=== PATIENT | male | born 1970 | race Two or more races ===

== ENCOUNTER 2017-12-09 10:05 | Emergency (ER) | payer MEDICAID ==
[~2017-12-09] VITALS: Ht 167.6 cm; Wt 104.3 kg
[~2017-12-09 10:05] MED LIST: METO25TA5 PO
[2017-12-09 10:25] VITALS: BP 131/71
== END 2017-12-09 12:45 | disposition left against medical advice (07) ==
LOC: ER 10:05
DX: T14.8XXA Other injury of unspecified body region, initial encounter (principal); Z79.899 Other long term (current) drug therapy; Y08.89XA Assault by other specified means, initial encounter; Y93.89 Activity, other specified; Y92.89 Other specified places as the place of occurrence of the external cause; Y99.8 Other external cause status

== ENCOUNTER 2018-11-08 12:32 | Emergency (ER) | payer MEDICAID ==
[~2018-11-08] VITALS: Ht 170.2 cm; Wt 101.6 kg
[2018-11-08 15:22] LABS: Urine Bacteria NONE SEEN /hpf (None Seen); Urine Blood Negative /uL (Negative); Urine Specific Gravity 1.032 (1.001-1.035); Urine WBC 1 /hpf (0 - 3)
[2018-11-08 15:43] LABS: Basophils # (auto) 0 uL; Basophils % (auto) 0.2 % (0.0-2.0); Eosinophils # (auto) 0.2 uL; Eosinophils % (auto) 1.9 % (0.0-7.0); Hematocrit 48.4 % (41.0-53.0); Hemoglobin 15.5 g/dL (13.5-17.5); Lymphocytes # (auto) 2.2 uL; Lymphocytes % (auto) 19.7 % (10.0-50.0); Mean Corpuscular Hemoglobin 28.4 pg (28.0-32.0); Mean Corpuscular Hgb Conc. 32.1 g/dL (32.0-36.0); Mean Corpuscular Volume 88.3 fL (80.0-100.0); Monocytes # (auto) 1.2 uL; Monocytes % (auto) 10.9 % (0.0-12.0); Neutrophils # (auto) 7.5 uL; Neutrophils % (auto) 67.3 % (37.0-80.0); Nucleated Red Blood Cells % 0.1 %; Platelet Count (auto) 204 10^3/uL (140-450); Red Blood Cells 5.48 10^6/uL (4.5-5.90); Red Cell Distribution Width 14.7 % (11.8-14.3); White Blood Cell 11.1 10^3/uL (4.4-10.8)
[2018-11-08 16:00] LABS: Albumin 3.6 g/dL (3.4-5.0); Anion Gap 7 (5-15); Blood Urea Nitrogen 14 mg/dL (7-18); Calcium 9.1 mg/dL (8.5-10.1); Carbon Dioxide 29 mmol/L (21-32); Chloride 106 mmol/L (98-107); Potassium 4.5 mmol/L (3.5-5.1); Sodium 142 mmol/L (136-145)
[2018-11-08 16:07] LABS: Alanine Aminotransferase 80 U/L (16-61); Alkaline Phosphatase 122 U/L (45-117); Aspartate Aminotransferase 54 U/L (15-37); BUN/Creatinine Ratio 17.9; Bilirubin, Total 0.3 mg/dL (0.2-1.0); GFR African American 135 mL/min; GFR Non-African American 112 mL/min; Glucose 89 mg/dL (74-106); Total Protein 7.7 g/dL (6.4-8.2)
[2018-11-08 17:38] VITALS: BP 112/66
== END 2018-11-08 17:39 | disposition home or self-care (01) ==
LOC: ER 12:33
DX: F41.9 Anxiety disorder, unspecified (principal); R79.89 Other specified abnormal findings of blood chemistry; Z79.899 Other long term (current) drug therapy
CPT/HCPCS: 36415; 80053; 81001; 82962; 84484; 85025; 93005

== ENCOUNTER 2020-07-22 07:14 | Emergency (ER) | payer MEDICAID ==
[~2020-07-22] VITALS: Ht 167.6 cm; Wt 103.0 kg
[2020-07-22 07:20] VITALS: BP 144/82
[2020-07-22] MEDS ORDERED: HYDROcodone-ACET 10/325MG TAB PO ONE (07:45)
== END 2020-07-22 09:48 | disposition home or self-care (01) ==
LOC: ER 07:14
DX: M54.6 Pain in thoracic spine (principal); M79.18 Myalgia, other site
CPT/HCPCS: 72070; 93005

== ENCOUNTER 2021-12-12 20:47 | Emergency (ER) | payer MEDICAID ==
[~2021-12-12] VITALS: Ht 167.6 cm; Wt 101.2 kg
[2021-12-12 21:17] LABS: Basophils # (auto) 0.1 10 ^3/uL (0-0.2); Basophils % (auto) 0.8 % (0.0-2.0); Eosinophils # (auto) 0.2 10 ^3/uL (0-0.8); Eosinophils % (auto) 2.4 % (0.0-7.0); Hematocrit 42.2 % (41.0-53.0); Hemoglobin 14.2 g/dL (13.5-17.5); Lymphocytes # (auto) 2.4 10 ^3/uL (0.4-5.4); Lymphocytes % (auto) 23.8 % (10.0-50.0); Mean Corpuscular Hemoglobin 29.4 pg (28.0-32.0); Mean Corpuscular Hgb Conc. 33.6 g/dL (32.0-36.0); Mean Corpuscular Volume 87.7 fL (80.0-100.0); Monocytes # (auto) 0.6 10 ^3/uL (0-1.3); Monocytes % (auto) 6.3 % (0.0-12.0); Neutrophils # (auto) 6.6 10 ^3/uL (1.6-8.6); Neutrophils % (auto) 66.7 % (37.0-80.0); Nucleated Red Blood Cells % 0.1 %; Red Blood Cells 4.81 10^6/uL (4.5-5.90); Red Cell Distribution Width 13.7 % (11.8-14.3); White Blood Cell 9.9 10^3/uL (4.4-10.8)
[2021-12-12 21:40] LABS: Albumin 3.6 g/dL (3.4-5.0); BUN/Creatinine Ratio 17.1; Calcium 9.6 mg/dL (8.5-10.1); Potassium 3.9 mmol/L (3.5-5.1)
[2021-12-12 21:43] LABS: Bilirubin, Total 0.4 mg/dL (0.2-1.0); Total Protein 7.8 g/dL (6.4-8.2)
[2021-12-12 23:40] VITALS: BP 136/86
[2021-12-12] MEDS ORDERED: DOCU100T15 PO (23:41)
[2021-12-13 01:01] LABS: Urine Bacteria NONE SEEN /hpf (None Seen); Urine Blood Negative /uL (Negative); Urine Mucus FEW (None Seen); Urine Specific Gravity 1.021 (1.001-1.035); Urine WBC 2 /hpf (0 - 3)
== END 2021-12-12 23:55 | disposition home or self-care (01) ==
LOC: ER 20:48
DX: K59.09 Other constipation (principal); I10 Essential (primary) hypertension; E11.9 Type 2 diabetes mellitus without complications; G89.29 Other chronic pain; M54.9 Dorsalgia, unspecified; Z79.899 Other long term (current) drug therapy
CPT/HCPCS: 36415; 71045; 74176; 80053; 81001; 83690; 85025

== ENCOUNTER 2022-05-18 16:35 | Emergency (ER) | payer MEDICAID ==
[~2022-05-18] VITALS: Ht 167.6 cm; Wt 92.7 kg
[~2022-05-18 16:35] MED LIST changes: +DOCU100T15 PO
[2022-05-18] MEDS ORDERED: ONDANSETRON HCL 4 MG/2 ML VIAL IV ONE (17:00)
[2022-05-18] MEDS ORDERED: SODIUM CHLORIDE 0.9% 1,000 ML IVB ONE (17:00)
[2022-05-18] MEDS ORDERED: IOHEXOL 300 MG/ML 100ML BOTTLE IJ ONE (17:15)
[2022-05-18 17:42] LABS: Basophils # (auto) 0 10 ^3/uL (0-0.2); Basophils % (auto) 0.2 % (0.0-2.0); Eosinophils # (auto) 0.1 10 ^3/uL (0-0.8); Hemoglobin 10.9 g/dL (13.5-17.5); Lymphocytes # (auto) 2.6 10 ^3/uL (0.4-5.4); Mean Corpuscular Hgb Conc. 31.3 g/dL (32.0-36.0); Mean Corpuscular Volume 81.3 fL (80.0-100.0)
[2022-05-18 17:43] LABS: Eosinophils % (auto) 1.3 % (0.0-7.0); Hematocrit 34.9 % (41.0-53.0); Lymphocytes % (auto) 24.4 % (10.0-50.0); Mean Corpuscular Hemoglobin 25.5 pg (28.0-32.0); Monocytes # (auto) 1.1 10 ^3/uL (0-1.3); Neutrophils # (auto) 6.8 10 ^3/uL (1.6-8.6); Neutrophils % (auto) 64.1 % (37.0-80.0); Red Blood Cells 4.29 10^6/uL (4.5-5.90); Red Cell Distribution Width 14.1 % (11.8-14.3); White Blood Cell 10.7 10^3/uL (4.4-10.8)
[2022-05-18 17:58] LABS: Alanine Aminotransferase 17 U/L (16-61); Albumin 3.6 g/dL (3.4-5.0); Anion Gap 7 (5-15); Aspartate Aminotransferase 13 U/L (15-37); BUN/Creatinine Ratio 28.4; Blood Alcohol < 3.0 mg/dL (0-5); Blood Urea Nitrogen 19 mg/dL (7-18); Calcium 8.5 mg/dL (8.5-10.1); Carbon Dioxide 28 mmol/L (21-32); Chloride 110 mmol/L (98-107); GFR African American 159 mL/min; GFR Non-African American 131 mL/min; Glucose 80 mg/dL (74-106); Magnesium 2.2 mg/dL (1.6-2.6); Potassium 3.6 mmol/L (3.5-5.1); Sodium 145 mmol/L (136-145)
[2022-05-18 18:01] LABS: Alkaline Phosphatase 106 U/L (45-117); Bilirubin, Total 0.3 mg/dL (0.2-1.0)
[2022-05-18 19:30] VITALS: BP 110/60
[2022-05-18 19:42] LABS: Urine Bacteria NONE SEEN /hpf (None Seen); Urine Blood Negative /uL (Negative); Urine Mucus FEW (None Seen); Urine WBC <1 /hpf (0 - 3)
[2022-05-18] MEDS ORDERED: SODIUM CHLORIDE 0.9% 1,000 ML IV ONE (19:45)
[2022-05-18 19:53] LABS: Urine Specific Gravity > 1.050 (1.001-1.035)
== END 2022-05-18 20:35 | disposition home or self-care (01) ==
LOC: ER 16:36
DX: R53.1 Weakness (principal); E86.0 Dehydration; I10 Essential (primary) hypertension; E11.9 Type 2 diabetes mellitus without complications; E78.5 Hyperlipidemia, unspecified; Z79.899 Other long term (current) drug therapy
CPT/HCPCS: 36415; 70450; 71260; 74177; 80053; 80320; 81001; 82962; 83605; 83735; 85025; 85379; 87040; 93005; 96361; 96374; 99285; J2405; J7030; Q9967

== ENCOUNTER 2022-09-10 14:10 | Emergency (ER) | payer MEDICARE, MEDICAID ==
[~2022-09-10] VITALS: Ht 167.6 cm; Wt 91.0 kg
[2022-09-10] MEDS ORDERED: methylPREDNISolone SOD SUCC 125 MG/2 ML VL IM ONE (17:30)
[2022-09-10] MEDS ORDERED: KETOROLAC TROMETH 30 MG/ML 1ML VIAL IM ONE (17:30)
[2022-09-10 19:20] VITALS: BP 119/81
== END 2022-09-10 19:29 | disposition home or self-care (01) ==
LOC: ER 14:10
DX: S46.091A Other injury of muscle(s) and tendon(s) of the rotator cuff of right shoulder, initial encounter (principal); E11.9 Type 2 diabetes mellitus without complications; E78.5 Hyperlipidemia, unspecified; I10 Essential (primary) hypertension; Z98.890 Other specified postprocedural states; Y93.89 Activity, other specified; Y92.89 Other specified places as the place of occurrence of the external cause; Y99.8 Other external cause status
CPT/HCPCS: 73030; 96372; 99284; J1885; J2930

== ENCOUNTER 2023-05-04 19:27 | Emergency (ER) | payer MEDICARE, MEDICAID ==
[~2023-05-04] VITALS: Ht 167.6 cm; Wt 97.0 kg
[2023-05-04] MEDS ORDERED: TRIO1TP EX (19:42)
[2023-05-04] MEDS ORDERED: DIPH25CA66 PO (19:42)
[2023-05-04] MEDS ORDERED: DOXY-346 PO (19:42)
[2023-05-04] MEDS ORDERED: DIPH25TA54 PO (19:42)
[2023-05-04] MEDS ORDERED: diphenhdrAMINE HCL 25 MG CAP PO ONE (19:45)
[2023-05-04] MEDS ORDERED: DexAMETHasone SOD PHOS 10MG/1ML VIAL INJ IM ONE (19:45)
[2023-05-04 20:04] VITALS: BP 129/81; TEMP 98.7
[2023-05-04 20:05] VITALS: PULSE 71; RESP 18; O2SAT 97
== END 2023-05-04 20:20 | disposition home or self-care (01) ==
LOC: ER 19:27
DX: S10.96XA Insect bite of unspecified part of neck, initial encounter (principal); L08.9 Local infection of the skin and subcutaneous tissue, unspecified; I10 Essential (primary) hypertension; E11.9 Type 2 diabetes mellitus without complications; E78.5 Hyperlipidemia, unspecified; Z79.2 Long term (current) use of antibiotics; Z79.899 Other long term (current) drug therapy; W57.XXXA Bitten or stung by nonvenomous insect and other nonvenomous arthropods, initial encounter; Y93.89 Activity, other specified; Y92.89 Other specified places as the place of occurrence of the external cause; Y99.8 Other external cause status

== ENCOUNTER 2024-10-27 06:25 | Day surgery (SDC) | payer MEDICARE, MEDICAID ==
[~2024-10-27] VITALS: Ht 167.6 cm; Wt 100.2 kg
[~2024-10-27 06:25] MED LIST changes: -DOCU100T15 PO; +METF-490 PO; +MORP30TA PO; +SEMA2INJ3 SC; +SIMV10TA20 PO; +TRIO1TP EX
[2024-10-27] MEDS ORDERED: DexAMETHasone SOD PHOS 4 MG/1ML SDV INJ ONE (06:38)
[2024-10-27] MEDS ORDERED: ceFAZolin 2 GM/D5W100ml 100 ML IV ONE (06:42)
[2024-10-27] MEDS ORDERED: CELECOXIB 100 MG CAP PO ONE (06:45)
[2024-10-27] MEDS ORDERED: GABAPENTIN 400 MG CAP PO ONE (06:45)
[2024-10-27] MEDS ORDERED: ACETAMINOPHEN IV 1000 MG/100ML (10MG/ML) IV ONE (06:45)
[2024-10-27] MEDS ORDERED: GABAPENTIN 400 MG CAP ONE (06:47)
[2024-10-27] MEDS ORDERED: CELECOXIB 100 MG CAP ONE (06:47)
[2024-10-27] MEDS ORDERED: ACETAMINOPHEN IV 100 ML IV ONE (06:47)
[2024-10-27] MEDS ORDERED: LIDOCAINE HCL 2% TOP JELLY 5ML TOP ONE (06:48)
[2024-10-27] MEDS ORDERED: GLYCOPYRROLATE 0.2 MG/ML 1ML VIAL ONE (06:51)
[2024-10-27] MEDS ORDERED: KETOROLAC TROMETH 30 MG/ML 1ML VIAL ONE (06:51)
[2024-10-27] MEDS ORDERED: DexAMETHasone SOD PHOS 10MG/1ML VIAL INJ ONE (06:51)
[2024-10-27] MEDS ORDERED: ROCURONIUM 10MG/ML 10ML VIAL IV ONE (06:51)
[2024-10-27] MEDS ORDERED: PROPOFOL 10 MG/ML 20 ML IV ONE (06:51)
[2024-10-27] MEDS ORDERED: SUGAMMADEX 200mg/2ml Vial (100MG/ML) IV ONE (06:51)
[2024-10-27] MEDS ORDERED: ONDANSETRON HCL 4 MG/2 ML VIAL ONE (06:51)
[2024-10-27] MEDS ORDERED: LIDOCAINE 2% (LOCAL ANESTH.) PF 5ml SDV ONE (06:51)
[2024-10-27] MEDS ORDERED: EPINEPHrine HCL 1 MG/1 ML AMP ONE ×3 (06:56→09:01)
[2024-10-27] MEDS ORDERED: BUPIVACAINE HCL 0 ML ONE (06:56)
[2024-10-27] MEDS ORDERED: fentaNYL CITRATE 100 MCG/2 ML VL ONE (08:27)
[2024-10-27] MEDS ORDERED: TRANEXAMIC ACID 10 ML ONE (08:38)
[2024-10-27] MEDS ORDERED: SODIUM CHLORIDE LOCK 10 ML ONE (09:17)
[2024-10-27] MEDS ORDERED: PHENYLEPHRINE HCL 10 MG/ML VL ONE (09:17)
[2024-10-27 10:03] VITALS: TEMP 97.1; O2SAT 98
--- NOTE | 2024-10-27 10:13 | ECG ---
[facility] Test Date: 2024-10-27 Test Time: 07:23:15 Pat Name: PAULA VARGAS Department: Room: Gender: M Laboratory Associate: MARCO : 1970 Requested By: ROGER STEVENS Order Number: [id number] Reading MD: Adonis Calero Measurements Intervals Tinnie Rate: 61 P: 56 MO: 178 QRS: -10 QRSD: 90 T: 39 QT: 408 QTc: 410 Interpretive Statements Normal sinus rhythm Electronically Signed On 10-29-2024 21:01:03 PST by Adonis Calero Please click the below link to view image of tracing.
[2024-10-27] MEDS ORDERED: ONDANSETRON HCL 4 MG/2 ML VIAL IV PRN (10:15)
[2024-10-27] MEDS ORDERED: HYDROmorphone HCL 2 MG/ML VL/or syr IV PRN (10:15)
[2024-10-27] MEDS ORDERED: FLUMAZENIL 0.1 MG/ML INJ 10ML MDV IV PRN (10:15)
[2024-10-27] MEDS ORDERED: ePHEDrine SULFATE 50 MG/ML AMP IV PRN (10:15)
[2024-10-27] MEDS ORDERED: NALOXONE HCL 0.4 MG/ML VIAL IV PRN (10:15)
[2024-10-27] MEDS ORDERED: fentaNYL CITRATE 100 MCG/2 ML VL IV PRN (10:15)
[2024-10-27] MEDS ORDERED: oxyCODONE HCL 5MG TAB PO PRN (10:15)
[2024-10-27] MEDS ORDERED: hydrALAZINE HCL 20 MG/ML VL IV PRN (10:15)
--- NOTE | 2024-10-27 10:55 | DVHOP2 ---
Operative Report - 2 Report Details Date: 10/27/24 Preop Diagnosis: Right shoulder massive rotator cuff tear with proximal biceps tendon tear with subacromial impingement Postop Diagnosis: Right shoulder massive rotator cuff tear with proximal biceps tendon tear with subacromial impingement Surgeon: Antonio Garcia MD Transportation Director: NALINI Henriquez Anesthesiologist: Clyde Fernández CRNA Anesthesia: General, Regional Implant: Medacta all suture anchors x2, osseo anchor x2,Rotium collagen augment x1 Consent: The patient was informed of the risks and benefits of the procedure. These include but are not limited to complications of anesthesia, postoperative infection, incomplete relief of symptoms, recurrence of symptoms, damage to blood vessels, nerves and tendons, deep venous thrombosis, pulmonary embolism and possible need for repeat surgery in the future. Complications: None Estimated Blood Loss: Less than 10 mL Indications for Surgery: The patient is a 54-year-old male who presented to the clinic with a history of chronic shoulder pain. Clinical and radiological evaluation demonstrated a complete rotator cuff tear. Significant retraction was noted. Nonoperative and operative management options were discussed. Surgery in the form of shoulder arthroscopy with rotator cuff repair was discussed with him. Benefits, risks and treatment alternatives were discussed. Specific complications of the surgery such as neurovascular injury, infection, arthrofibrosis, loss of limb or life were discussed. He decided to proceed with the surgical option. Name of Procedure Performed Right shoulder arthroscopy with rotator cuff repair, subacromial decompression and proximal biceps tenodesis, extensive synovial debridement and releases. Procedure Details Procedure Details: The patient was identified in the preoperative holding area and the surgical site was marked. The consent was verified. The patient was brought into the operating room and placed supine on the operating table. General anesthesia was administered. The beachchair attachment was applied to the operating table. The patient was now brought up into the beachchair position, approximately 60 degrees. The arm was prepped and draped in the usual sterile manner. The arm was placed in the attachment for the spyder, mechanical arm mckenna. The extremity was examined under anesthesia and was found to have good passive range of motion. A timeout was performed to confirm the identity of the patient, the nature of surgery, the site of surgery, the available of implants and x-rays and allergies to medications A standard posterior portal established. A 30 degree scope was inserted A standard anterior portal was established. A probe was inserted and the findings are as follows: 1. Upper 3rd subscapularis tendon 2. Significant fraying and tear of the biceps tendon 3. Circumferential degenerative labral tear 4. Grade I-II chondromalacia 5. Significant synovitis 6. Full-thickness rotator cuff tear, massive-sized with retraction to cartilage with delamination The subscapularis tear was significant and was off the lesser tuberosity. I passed two sutures through the subscapularis and this was passed into the knotless anchor. Good fixation was noted. The subacromial space was entered. Significant bursitis was noted. Decompression was carried out with bursectomy. The rotator cuff tear was visualized. This was a massive sized tear after debridement. Extensive releases were performed. A thermal ablation Wand was used on the superior and inferior surface of the rotator cuff to do the releases. Rotator interval was also released. Significant time and efforts were spent doing the steps was to decrease the tension on the final repair. After this step, the cuff was very mobile. I decided to do a double row repair for this tear. A medial row all suture anchor was inserted anteriorly. A posterior similar anchor was now inserted. 2 additional portals were made, the posterior lateral portal and the superior portal for this. A cannula was inserted into the lateral portal. A suture penetration and grasping device was used to grasp the tissue and passed the sutures. The sutures were sequentially passed from anterior to posterior direction. 8 passes were made. Because of the large nature of the tear, I decided to augment the fixation with a collagen patch. This was used as per manufacture's guidelines. All the sutures were now passed through the collagen implant that was laid on top of the greater tuberosity footprint on the medial side. This augment was below the rotator cuff surface. The sutures were now tied for an excellent medial row footprint coverage. A freestanding suture was passed through the biceps tendon for tenodesis. The sutures were inserted into the lateral row anchor for a completion of biceps tenodesis Some of the sutures were now inserted into a knotless lateral row anchor. This was used as per manufacture's guidelines. A punch was used. Next, the anchor was used and inserted into the bone. Good fixation was noted. Subacromial decompression was completed with acromioplasty to remove approximately 5 mm of acromion as it was downsloping in nature. Irrigation was given and the skin portals were closed with 2-0 nylon Sterile dressing was applied. Local anesthetic was given. Shoulder immobilizer was applied Disposition: Good, the patient was extubated and taken to recovery without any complications. The patient was examined in the recovery and had intact ne urovascular exam Plan: To remain in the brace. Follow-up in 1 week. Condition Good Disposition Home ANTONIO GARCIA MD Oct 27, 2024 10:55
[2024-10-27 12:03] VITALS: BP 133/78; PULSE 60; RESP 17; O2SAT 94
== END 2024-10-27 12:30 | disposition home or self-care (01) ==
LOC: SUR 06:25
PROVIDERS: ATTEND Orthopaedic Surgery Sports Medicine
DX: M75.121 Complete rotator cuff tear or rupture of right shoulder, not specified as traumatic (principal); S46.811A Strain of other muscles, fascia and tendons at shoulder and upper arm level, right arm, initial encounter; M25.811 Other specified joint disorders, right shoulder; M25.511 Pain in right shoulder; G89.29 Other chronic pain; M75.41 Impingement syndrome of right shoulder; M94.211 Chondromalacia, right shoulder; M65.811 Other synovitis and tenosynovitis, right shoulder; M75.51 Bursitis of right shoulder; I10 Essential (primary) hypertension; E11.9 Type 2 diabetes mellitus without complications; Z79.899 Other long term (current) drug therapy; Z98.890 Other specified postprocedural states; Z79.84 Long term (current) use of oral hypoglycemic drugs; Z88.7 Allergy status to serum and vaccine; X58.XXXA Exposure to other specified factors, initial encounter; Y93.89 Activity, other specified; Y92.89 Other specified places as the place of occurrence of the external cause; Y99.8 Other external cause status
CPT/HCPCS: 29826; 29827; 29828; 64415; 76942; 82962; 93005; C1713; J0171; J1100; J1885; J2003; J2371; J2405; J2704; A4565; J0131; J3490

== ENCOUNTER 2025-06-18 05:30 | Inpatient (IN) | payer MEDICARE, MEDICAID ==
[~2025-06-18] VITALS: Ht 167.6 cm; Wt 107.0 kg
--- NOTE | 2025-06-18 06:51 | ED.PDOC ---
History of Present Illness HPI Comments A 55 YEAR OLD MALE PRESENTS TO THE ED WITH COMPLAINT OF RIGHT SIDED FACIAL SWELLING AND PAIN. PATIENT REPORTS WAKING UP WITH THE SWELLING, LATER DEVELOPING A CRAMPING SENSATION TO THE UPPER JAW AREA. PATIENT DENIES ANY ASSOCIATED EAR OR TOOTH PAIN. PATIENT DENIES FEVER, CHILLS, SHORTNESS OF BREATH, CHEST PAIN, ABDOMINAL PAIN, NAUSEA, VOMITING, HEADACHE, OR OTHER COMPLAINTS. NO OTHER SYMPTOMS OR MODIFYING FACTORS AT THIS TIME. PATIENT IS ALERT, ORIENTED X 4, AND HAS STEADY GAIT. HE MENTIONS A HX OF DM, HTN AND HLD. Chief Complaint: Face pain Time Seen by MD: 06:44 Primary Care Provider: RIGOBERTO Reviewed Notes: Nurses Notes, Medications, Allergies Allergies: Coded Allergies: Influenza Vaccines (Verified Allergy, Unknown, FEVER, 06/18/25) Home Meds Active Scripts Triamcinolone Acetonide (Triamcinolone Acetonide) 0.1 % Cre, 1 APPLIC EX BID for 14 Days, #15 MG Prov:LEONOR YANG Q RN LONG TERM CARE 05/04/23 Reported Medications Metoprolol Tartrate (LOPRESSOR TABLET) 50 Mg Tb, 1 TAB PO DAILY 06/18/25 Simvastatin (Simvastatin) 20 Mg Tab, 1 TAB PO 06/18/25 Semaglutide (Ozempic) 2 Mg/3 Ml Inj, 0.5 MG SC QWEEKLY, INJ 12/19/23 Simvastatin (Simvastatin) Unknown Strength Tab, PO DAILY, TAB 12/19/23 Morphine Sulfate (Morphine Sulfate) 30 Mg Tab, 30 MG PO BID, TAB 12/19/23 Metformin Hydrochloride (METFORMIN HCL ER) 1,000 Mg Tab, 1000 MG PO DAILY, TAB 12/19/23 Metoprolol Tartrate (Metoprolol Tartrate) 25 Mg Tab, 25 MG PO DAILY for 30 Days, MG 07/28/14 Information Source: Patient Mode of Arrival: Ambulatory Severity: Moderate Timing: Hours Duration: Since onset Past Medical History PAST MEDICAL HISTORY: DM, High Lipids, HTN Past Medical History (Other): CHRONIC LOW BACK PAIN Surgical History: Hernia Repair Family History Family History: Unknown Social History Smoker: Non-Smoker Alcohol: Rarely Drugs: Denies Drug Use Lives In: Home Constitutional: denies: chills, diaphoresis, fatigue, fever, malaise, sweats, weakness, others EENTM: reports: others (RIGHT SIDED FACIAL SWELLING AND PAIN ); denies: blurred vision, double vision, ear bleeding, ear discharge, ear drainage, ear pain, ear ringing, eye pain, eye redness, hearing loss, mouth pain, mouth swelling, nasal discharge, nose bleeding, nose congestion, nose pain, photophobia, tearing, throat pain, throat swelling, voice changes Respiratory: denies: cough, hemoptysis, orthopnea, SOB at rest, shortness of breath, SOB with excertion, stridor, wheezing, others Cardiovascular: denies: chest pain, dizzy spells, diaphoresis, Dyspnea on exertion, edema, irregular heart beat, left arm pain, lightheadedness, palpitations, PND, syncope, others Gastrointestinal: denies: abdomen distended, abdominal pain, blood streaked bowels, constipated, diarrhea, dysphagia, difficulty swallowing, hematemesis, melena, nausea, poor appetite, poor fluid intake, rectal bleeding, rectal pain, vomiting, others Genitourinary: denies: burning, dysuria, flank pain, frequency, hematuria, incontinence, penile discharge, penile sore, pain, testicle pain, testicle swe lling, urgency, others Neurological: denies: dizziness, fainting, headache, left sided numbness, left sided weakness, numbness, paresthesia, pre-existing deficit, right sided numbness, right sided weakness, seizure, speech problems, tingling, tremors, weakness, others Musculoskeletal: denies: back pain, gout, joint pain, joint swelling, muscle pain, muscle stiffness, neck pain, others Integumetry: denies: bruises, change in color, change in hair/nails, dryness, laceration, lesions, lumps, rash, wounds, others Allergic/Immunocompromised: denies: Difficulty Healing, Frequent Infections, Hives, Itching, others Hematologic/Lymphatic: denies: anemia, blood clots, easy bleeding, easy bruising, swollen glands, others Endocrine: denies: excessive hunger, excessive sweating, excessive thirst, excessive urination, flushing, intolerance to cold, intolerance to heat, unexplained weight gain, unexplained weight loss, others Psychiatric: denies: anxiety, bipolar disorder, depression, hopeless, panic disorder, schizophrenia, sleepless, suicidal, others All Other Systems: Reviewed and Negative Physical Exam General Appearance: No Apparent Distress, Normal HEENT: Pharynx Normal, TM Abnormal (R) (MILD ERYTHEMA AND DULL WITH EFFUSION OF RIGHT EAR CANAL AND TM. ), Other (TENDERNESS AND SWELLING ON RIGHT PAROTID GLAND REGION, NO ERYTHEMA AND OPEN WOUND. +PAROTITIS. ) Neck: Full Range of Motion, Non-Tender, Normal, Normal Inspection Respiratory: Chest Non-Tender, Lungs Clear, No Accessory Muscle Use, No Respiratory Distress, Normal Breath Sounds Cardiovascular: No Edema, No JVD, No Murmur, No Gallop, Normal Peripheral Pulses, Regular Rate/Rhythm Breast Exam: Deferred Gastrointestinal: No Organomegaly, Non Tender, No Pulsatile Mass, Normal Bowel Sounds, Soft Genitalia: Deferred Pelvic: Deferred Rectal: Deferred Extremities: No calf tenderness, Normal capillary refill, Normal inspection, Normal range of motion, Non-tender, No pedal edema Musculoskeletal : Apperance: Normal Neurologic: Alert, senior contract specialist II-XII nml as Tested, No Motor Deficits, Normal Affect, Normal Mood, No Sensory Deficits Cerebellar Function: Normal Reflexes: Normal Skin: Dry, Normal Color, Warm Peripheral Pulses: 2+ carotid (R), 2+ carotid (L) Lymphatic: No Adenopathy Was a procedure done? Was a procedure done?: No Differential Dx Considerations may include: ALLERGIC REACTION, CELLULITIS, DENTAL ABSCESS, ANGIOEDEMA, PAROTITIS X-Ray, Labs, Meds, VS Vital Signs Date Time Temp Pulse Resp B/P (MAP) Pulse Ox O2 Delivery O2 Flow Rate FiO2 06/18/25 06:41 98.7 67 19 106/72 (83) 96 98.7 06/18/25 06:35 Room Air* 0 21 06/18/25 05:32 97.8 70 18 139/82 96 97.8 Lab Test 06/18/25 07:05 Range/Units White Blood Count 10.0 4.4-10.8 10^3/uL Red Blood Count 4.86 4.5-5.90 10^6/uL Hemoglobin 14.4 13.5-17.5 g/dL Hematocrit 43.1 41.0-53.0 % Mean Corpuscular Volume 88.6 80.0-100.0 fL Mean Corpuscular Hemoglobin 29.7 28.0-32.0 pg Mean Corpuscular Hemoglobin Concent 33.5 32.0-36.0 g/dL Red Cell Distribution Width 13.8 11.8-14.3 % Platelet Count 172 140-450 10^3/uL Mean Platelet Volume 8.8 6.9-10.8 fL Neutrophils (%) (Auto) 72.3 37.0-80.0 % Lymphocytes (%) (Auto) 18.9 10.0-50.0 % Monocytes (%) (Auto) 6.7 0.0-12.0 % Eosinophils (%) (Auto) 1.9 0.0-7.0 % Basophils (%) (Auto) 0.2 0.0-2.0 % Neutrophils # (Auto) 7.2 1.6-8.6 10 ^3/uL Lymphocytes # (Auto) 1.9 0.4-5.4 10 ^3/uL Monocytes # (Auto) 0.7 0-1.3 10 ^3/uL Eosinophils # (Auto) 0.2 0-0.8 10 ^3/uL Basophils # (Auto) 0 0-0.2 10 ^3/uL Nucleated Red Blood Cells 0.0 % Erythrocyte Sedimentation Rate 16 0-20 mm/hr Sodium Level 144 136-145 mmol/L Potassium Level 3.8 3.5-5.1 mmol/L Chloride Level 104 98-107 mmol/L Carbon Dioxide Level 30 20-31 mmol/L Anion Gap 10 5-15 Blood Urea Nitrogen 13 9-23 mg/dL Creatinine 0.75 0.700-1.30 mg/dL Glomerular Filtration Rate Calc 105 >90 mL/min BUN/Creatinine Ratio 17.3 10.0-20.0 Serum Glucose 143 H 74-106 mg/dL Hemoglobin A1c 7.0 H <5.7 % A1C Lactic Acid Level 1.6 0.4-2.0 mmol/L Calcium Level 9.8 8.7-10.4 mg/dL C-Reactive Protein High Sensitivity 0.52 <1.0 mg/dL Current Medications Medications (Trade) Dose Ordered Sig/Danny Route Start Time Stop Time Status Last Admin Piperacillin Sod/ Tazobactam Sod 100 ml @ 100 mls/hr ONCE ONCE IV 06/18/25 07:30 06/18/25 08:29 DC 06/18/25 09:39 Ketorolac Tromethamine (Toradol Injection) 30 mg ONCE ONCE IV 06/18/25 07:45 06/18/25 07:46 DC 06/18/25 09:41 [facility] [id number] [facility] [address] Ph: [phone] DIAGNOSTIC IMAGING Diagnostic Imaging Report : [id number] Signed PATIENT: PAULA VARGAS ACCT: [id number] UNIT: [id number] : 1970 LOC: ER ROOM / BED: / AGE / SEX: 55 / M ADM STATUS: REG ER SERVICE 9 ORDERING PHYSICIAN: MOHIT PIKE PROCEDURE(s): FAC2C - MAXILLOFACIAL WITHOUT REASON: RIGHT FACE PAIN AND SWELLING, R/O PAROTITIS ORDER NUMBER(s): [id number], ACCESSION NUMBER(s): [id number] CLINICAL INFORMATION: Right facial pain and swelling. Rule out parotitis. TECHNIQUE: Axial CT images of the maxillofacial region were obtained without contrast. Coronal and sagittal reformatted images were obtained, reviewed, and s tored. One or more of the following dose reduction techniques were used: Automated exposure control. Adjustment of mA and/or kV according to patient size. CTDIvol = 66.97 mGy DLP = 1363.9 mGy-cm COMPARISON: Correlation made to prior CT head exam dated 05/18/2022. No prior maxillofacial CT exam FINDINGS: There is asymmetric enlargement of the right parotid gland compared to the left with mild inflammatory stranding, likely parotitis in the appropriate clinical setting. No organized fluid collection identified. Submandibular glands appear unremarkable. Facial bones appear intact without evidence of acute fracture. Mild mucosal thickening of the paranasal sinuses. Retention cysts versus polyps in the left maxillary sinus. Mastoid air cells are clear. No abnormality identified in the orbits. Globes and orbital structures appear intact. No periorbital or orbital hemorrhage. IMPRESSION: 1. Findings consistent with right parotitis in the appropriate clinical setting. 2. Additional nonacute findings as described above. ATED BY: OSWALD PRABHAKAR DO DICTATED DATE/TIME: 06/18/25739 SIGNED BY: OSWALD PRABHAKAR DO SIGNED DATE/TIME: 06/18/25739 CC: X-Ray, Labs, Meds, VS Comment EXTERNAL MEDICAL RECORDS REVIEWED: [NONE] INDEPENDENT HISTORIANS: [NONE] SOCIAL DETERMINANTS OF HEALTH: DM, HLD, HTN LABS ORDERED: CMP, BMP, BLOOD CULTURE, LACTIC ACID REVIEWED AND INTERPRETED RESULTS: NONE IMAGING ORDERED: MAXILLOFACIAL CT SCAN TREATMENTS ORDERED: ROCEPHIN 1GM IVPB, ZOSYN 3.37GM IVP AND TORADOL 30MG IVP PROCEDURES PERFORMED: NONE CRITICAL CARE TIME: NONE I HAVE DISCUSSED THE PATIENT WITH THE ATTENDING PHYSICIAN, DR. BEACH, SHE AGREES WITH THE PATIENT'S PLAN OF CARE AND DISPOSITION. BASED ON HISTORY OF PRESENT ILLNESS, AND PHYSICAL EXAM, PATIENT WILL BE ADMITTED GIVEN FINDINGS OF PAROTITIS ON CT MAXILLOFACIAL SCAN TO RECEIVE IV ANTIBIOTIC CARE. SHARED DECISION MAKING: DISCUSSED WITH PATIENT HIS CARE PLAN. PATIENT VERBALIZES UNDERSTANDING ON ADMISSION CRITERIA AND ALL QUESTIONS ADDRESSED AT TIME. Time of 1ST Reevaluation: 06:58 Reevaluation 1ST: Unchanged Time of 2ND Reevaluation: 08:00 Reevaluation 3RD: Unchanged Patient Education/Counseling: Diagnosis, Treatment Family Education/Counseling: Diagnosis, Treatment, No Family Present SEPSIS Sepsis Screen Date sepsis recognized/suspect: Jun 18, 2025 Time Sepsis recognized/suspect: 0538 Recent Procedure: No On Antibiotic Therapy: No Respiratory Rate >20: No Heart Rate >90: No Temp<36 C (96.8 F) or >38.3 C: No SBP <90 or MAP <65 mmHG: No New Acute Mental Status Change: No Is the patient on CPAP, BIPAP,: No Physician Orders Blood Culture (06/18/25 06:49) Heplock Iv (06/18/25 ) Maxillofacial Without (06/18/25 07:00) Vital Signs Date Time Temp Pulse Resp B/P (MAP) Pulse Ox O2 Delivery O2 Flow Rate FiO2 06/18/25 06:41 98.7 67 19 106/72 (83) 96 98.7 06/18/25 06:35 Room Air* 0 21 06/18/25 05:32 97.8 70 18 139/82 96 97.8 Laboratory Tests Test 06/18/25 07:05 Lactic Acid Level 1.6 mmol/L (0.4-2.0) White Blood Count 10.0 10^3/uL (4.4-10.8) Medications Medications Dose Ordered Sig/Danny Route Start Time Stop Time Status Last Admin Dose Admin Ketorolac Tromethamine 30 mg ONCE ONCE IV 06/18/25 07:45 06/18/25 07:46 DC 06/18/25 09:41 Piperacillin Sod/ Tazobactam Sod 100 ml @ 100 mls/hr ONCE ONCE IV 06/18/25 07:30 06/18/25 08:29 DC 06/18/25 09:39 Departure 1 Departure Time of Disposition: 08:00 Impression: Primary Impression: Acute parotitis Disposition: ADMITTED INPATIENT Condition: Serious Critical Care Note Critical Care Time?: No Stability Stability form required: Yes Unstable for transfer: Requires medication, ED Physician Assesment, Possible rapid decline I personally scribed for MOHIT PIKE ([email or web address]) on 06/18/25 at 06:51. Electronically submitted by Saima Venegas ([facility]). I personally scribed for MOHIT PIKE ([email or web address]) on 06/18/25 at 06:59. Electronically submitted by Saima Venegas ([facility]). I personally scribed for MOHIT PIKE ([email or web address]) on 06/18/25 at 07:03. Electronically submitted by Saima Venegas ([facility]). I personally scribed for MOHIT PIKE ([email or web address]) on 06/18/25 at 07:54. Electronically submitted by Saima Venegas ([facility]). MOHIT PIKE Jun 18, 2025 06:51
--- NOTE | 2025-06-18 07:43 | DVH ---
CLINICAL INFORMATION: Right facial pain and swelling. Rule out parotitis. TECHNIQUE: Axial CT images of the maxillofacial region were obtained without contrast. Coronal and sa gittal reformatted images were obtained, reviewed, and stored. One or more of the following dose redu ction techniques were used: Automated exposure control. Adjustment of mA and/or kV according to patie nt size. CTDIvol = 66.97 mGy DLP = 1363.9 mGy-cm COMPARISON: Correlation made to prior CT head exam dated 05/18/2022. No prior maxillofacial CT exam FINDINGS: There is asymmetric enlargement of the right parotid gland compared to the left with mild inflammatory stranding, likely parotitis in the appropriate clinical setting. No organized fluid essence ection identified. Submandibular glands appear unremarkable. Facial bones appear intact without evid ence of acute fracture. Mild mucosal thickening of the paranasal sinuses. Retention cysts versus becki yps in the left maxillary sinus. Mastoid air cells are clear. No abnormality identified in the orbits . Globes and orbital structures appear intact. No periorbital or orbital hemorrhage. IMPRESSION: 1. Findings consistent with right parotitis in the appropriate clinical setting. 2. Additional nonacute findings as described above.
[2025-06-18 07:47] LABS: Hematocrit 43.1 % (41.0-53.0); Hemoglobin 14.4 g/dL (13.5-17.5); Mean Corpuscular Hemoglobin 29.7 pg (28.0-32.0); Mean Corpuscular Volume 88.6 fL (80.0-100.0); Nucleated Red Blood Cells % 0.0 %
[2025-06-18 07:55] LABS: Chloride 104 mmol/L (98-107); Potassium 3.8 mmol/L (3.5-5.1); Sodium 144 mmol/L (136-145)
[2025-06-18 07:56] LABS: Anion Gap 10 (5-15); Carbon Dioxide 30 mmol/L (20-31)
[2025-06-18 07:57] LABS: Calcium 9.8 mg/dL (8.7-10.4)
[2025-06-18] MEDS: SODIUM CHLORIDE 0.9% 1,000 ML IV ONE (08:00)
[2025-06-18 08:02] LABS: BUN/Creatinine Ratio 17.3 (10.0-20.0); Blood Urea Nitrogen 13 mg/dL (9-23)
[2025-06-18 08:05] LABS: Glucose 143 mg/dL (74-106)
--- NOTE | 2025-06-18 08:23 | DVHHP2 ---
History of Present Illness Reason for Visit: Right-sided facial swelling and pain History of Present Illness Billy Ruiz is a 55-year-old male with past medical history of chronic low back pain, right shoulder surgery, sleep apnea on CPAP, spinal surgery, hernia repair, hypertension, diabetes, and hyperlipidemia who presents to the ED with right-sided facial swelling and pain that started at 4:30 a.m. this morning , reports 9/10 cramping like and constant pain. Patient reports that medications makes it better and turning his neck makes it worse. Patient reports that he uses a CPAP machine and assumed it was the straps however he stated that there was swelling and pain. Patient reports that he takes morphine p.o. for his chronic back pain and advised him not to take it while he is here in the hospital also being admitted an inpatient. Patient insists that he takes his oral morphine and I re-educated him multiple times that we will give him pain medications while he is inpatient, patient understood. Patient also reports that he gets around with his wheelchair. Patient denies any recent trauma or injury, recent sick contacts, recent falls, recent ingestion of spoiled food, chest pain, shortness of breath, fever, chills, lightheadedness, weakness, dizziness, abdominal pain, nausea, vomiting, diarrhea, or urinary symptoms. Patient also denies any recent cavities or recent dental work. Cardiovascular: HTN, hyperipidemia Endocrine: Diabetes Past Medical History Chronic low back pain Sleep apnea on CPAP Past Surgical History: Hernia Repair, Other (Right shoulder surgery and spinal surgery) Family History: DM, Hypertension, Other (Mom with diabetes and hypertension. Dad with Alzheimer's, diabetes, and hypertension) Smoke: No ALCOHOL: none Drugs: None Lives: with Family Domestic Violence: Neg Review of Systems ENT: Mouth pain Allergies: Uncoded Allergies: INFLUENZA VACCINE (Allergy, Unknown, Fever, 10/23/24) Exam Vital Signs Vital Signs Date Time Temp Pulse Resp B/P (MAP) Pulse Ox O2 Delivery O2 Flow Rate FiO2 06/18/25 06:41 98.7 67 19 106/72 (83) 96 98.7 06/18/25 06:35 Room Air* 0 21 General Appearance: Alert, Oriented X3, Cooperative, No acute distress HEENT: Atraumatic, PERRLA, EOMI, Mucous membr. moist/pink Respiratory: Clear to auscultation, Normal air movement Cardiovascular: Regular rate, Normal S1, Normal S2 Abdominal: Normal bowel sounds, Soft Extremities: No cyanosis, No edema Neuro: Normal speech, Sensation intact Psych/Mental Status: Mental status NL, Mood NL Labs/Xrays Labs Test 06/18/25 07:05 Range/Units White Blood Count 10.0 4.4-10.8 10^3/uL Red Blood Count 4.86 4.5-5.90 10^6/uL Hemoglobin 14.4 13.5-17.5 g/dL Hematocrit 43.1 41.0-53.0 % Mean Corpuscular Volume 88.6 80.0-100.0 fL Mean Corpuscular Hemoglobin 29.7 28.0-32.0 pg Mean Corpuscular Hemoglobin Concent 33.5 32.0-36.0 g/dL Red Cell Distribution Width 13.8 11.8-14.3 % Platelet Count 172 140-450 10^3/uL Mean Platelet Volume 8.8 6.9-10.8 fL Neutrophils (%) (Auto) 72.3 37.0-80.0 % Lymphocytes (%) (Auto) 18.9 10.0-50.0 % Monocytes (%) (Auto) 6.7 0.0-12.0 % Eosinophils (%) (Auto) 1.9 0.0-7.0 % Basophils (%) (Auto) 0.2 0.0-2.0 % Neutrophils # (Auto) 7.2 1.6-8.6 10 ^3/uL Lymphocytes # (Auto) 1.9 0.4-5.4 10 ^3/uL Monocytes # (Auto) 0.7 0-1.3 10 ^3/uL Eosinophils # (Auto) 0.2 0-0.8 10 ^3/uL Basophils # (Auto) 0 0-0.2 10 ^3/uL Nucleated Red Blood Cells 0.0 % Sodium Level 144 136-145 mmol/L Potassium Level 3.8 3.5-5.1 mmol/L Chloride Level 104 98-107 mmol/L Carbon Dioxide Level 30 20-31 mmol/L Anion Gap 10 5-15 Blood Urea Nitrogen 13 9-23 mg/dL Creatinine 0.75 0.700-1.30 mg/dL Glomerular Filtration Rate Calc 105 >90 mL/min BUN/Creatinine Ratio 17.3 10.0-20.0 Serum Glucose 143 H 74-106 mg/dL Lactic Acid Level 1.6 0.4-2.0 mmol/L Calcium Level 9.8 8.7-10.4 mg/dL CLINICAL INFORMATION: Right facial pain and swelling. Rule out parotitis. TECHNIQUE: Axial CT images of the maxillofacial region were obtained without contrast. Coronal and sagittal reformatted images were obtained, reviewed, and stored. One or more of the following dose reduction techniques were used: Automated exposure control. Adjustment of mA and/or kV according to patient size. CTDIvol = 66.97 mGy DLP = 1363.9 mGy-cm COMPARISON: Correlation made to prior CT head exam dated 05/18/2022. No prior maxillofacial CT exam FINDINGS: There is asymmetric enlargement of the right parotid gland compared to the left with mild inflammatory stranding, likely parotitis in the appropriate clinical setting. No organized fluid collection identified. Submandibular glands appear unremarkable. Facial bones appear intact without evidence of acute fracture. Mild mucosal thickening of the paranasal sinuses. Retention cysts versus polyps in the left maxillary sinus. Mastoid air cells are clear. No abnormality identified in the orbits. Globes and orbital structures appear intact. No periorbital or orbital hemorrhage. IMPRESSION: 1. Findings consistent with right parotitis in the appropriate clinical setting. 2. Additional nonacute findings as described above. SEPSIS Sepsis Screen Date sepsis recognized/suspect: Jun 18, 2025 Time Sepsis recognized/suspect: 0538 Recent Procedure: No On Antibiotic Therapy: No Respiratory Rate >20: No Heart Rate >90: No Temp<36 C (96.8 F) or >38.3 C: No SBP <90 or MAP <65 mmHG: No New Acute Mental Status Change: No Is the patient on CPAP, BIPAP,: No Physician Orders Blood Culture (06/18/25 06:49) Heplock Iv (06/18/25 ) Maxillofacial Without (06/18/25 07:00) Piperacillin-Tazob 3.375gm (Zosyn 3.375g (06/18/25 07:30) Sodium Chloride 0.9% (06/18/25 08:00) Vital Signs Date Time Temp Pulse Resp B/P (MAP) Pulse Ox O2 Delivery O2 Flow Rate FiO2 06/18/25 06:41 98.7 67 19 106/72 (83) 96 98.7 06/18/25 06:35 Room Air* 0 21 06/18/25 05:32 97.8 70 18 139/82 96 97.8 Laboratory Tests Test 06/18/25 07:05 Lactic Acid Level 1.6 mmol/L (0.4-2.0) White Blood Count 10.0 10^3/uL (4.4-10.8) Assessment/Plan Assessment/Plan Assessment Intractable right-sided facial swelling likely due to parotitis History of diabetes History of hypertension History of hyperlipidemia History of chronic low back pain History of hernia repair History of right shoulder surgery History of sleep apnea on CPAP History of spinal surgery Plan Admit to med surge Antiemetics Pain management IV antibiotics-ceftriaxone + clindamycin Ceftriaxone + Zosyn given in ED Hemoglobin A1c ISS and Accu-Cheks NS [address] maxillofacial noted Lactic noted UA UDS Wound culture with Gram stain ESR CRP Diet Home medications reconciled DVT prophylaxis-SCDs PUD prophylaxis-not indicated history of GERD or GI bleed Discussed plan of care with patient and nurse Mobilizes with a wheelchair [id number] Preventive counseling healthy eating habits, physical activity, and regular checkups Plan discussed with: Patient Date of Service: Jun 18, 2025 Billing Provider: SUSAN SCRUGGS Common Visit Codes: 67242-CUIAKHM INP/OBS CARE (HIGH) Secondary Visit Codes: 71445-[id number] COUNSELING IND SUSAN SCRUGGS Jun 18, 2025 08:23
[2025-06-18] MEDS ORDERED: HYDROcodone-ACET 5/325MG TAB PO PRN ×2 (08:30→09:15)
[2025-06-18] MEDS ORDERED: DEXTROSE (50%) 50ML SYRG IV PRN (08:30)
[2025-06-18] MEDS ORDERED: MET50T PO (08:33)
[2025-06-18] MEDS ORDERED: SIMV20TA20 PO (08:33)
[2025-06-18 09:26] VITALS: BP 106/72; PULSE 68; RESP 18; TEMP 98.7; O2SAT 96
[2025-06-18] MEDS: CLINDAMYCIN 600MG IV 50 ML IV SCH (09:39)
[2025-06-18] MEDS: PIPERACILLIN-TAZOB 3.375GM 100 ML IV ONE (09:39)
[2025-06-18] MEDS: ONDANSETRON HCL 4 MG/2 ML VIAL IV PRN (09:40)
[2025-06-18] MEDS: KETOROLAC TROMETH 30 MG/ML 1ML VIAL IV ONE (09:41)
[2025-06-18] MEDS: METOPROLOL TARTRATE 50 MG TAB PO SCH (09:42)
[2025-06-18] MEDS: MORPHINE SULFATE 4 MG/ML SYR/VIAL IV PRN (09:42)
[2025-06-18] MEDS ORDERED: METOPROLOL TARTRATE 25 MG TAB PO SCH (10:00)
[2025-06-18] MEDS: ACCU-CHEK COMFORT CURVE STRIP VI SCH (11:06)
[2025-06-18] MEDS: InsuLIN REG 1unit/0.01ml Soln (100units/ml) SC SCH (11:08)
[2025-06-18 15:34] VITALS: BP 122/65; PULSE 66; RESP 18; TEMP 98.5; O2SAT 95
[2025-06-18 16:08] VITALS: BP 122/65; PULSE 66; RESP 18; TEMP 98.5; O2SAT 95
[2025-06-18] MEDS: ACETAMINOPHEN 325 MG TAB PO PRN (17:19)
[2025-06-18 17:20] VITALS: BP 113/68; PULSE 64; RESP 16; TEMP 98.2; O2SAT 95
[2025-06-18 21:00] VITALS: BP 110/67; PULSE 63; RESP 16; TEMP 98.4; O2SAT 95
[2025-06-18] MEDS: ATORVASTATIN 20 MG TAB PO SCH (21:18)
[2025-06-18 22:30] VITALS: BP 132/84; PULSE 66; RESP 17; TEMP 98; O2SAT 97
[2025-06-18] MEDS ORDERED: IBU600T PO (22:48)
[2025-06-18 23:35] LABS: Urine Protein, UAD Negative (Negative)
[2025-06-18 23:45] LABS: Opiate Scree,Urine Pos (NEGATIVE)
[2025-06-18 23:47] LABS: Amphetamine Screen, Urine Neg (NEGATIVE); Barbiturate Scree,Urine Neg (NEGATIVE); Benzodiazephine Screen, Urine Neg (NEGATIVE); Cannabinoid Screen, Urine Neg (NEGATIVE); Cocaine Screen, Urine Neg (NEGATIVE); Phencyclidine Screen, Urine Neg (NEGATIVE)
[2025-06-19] VITALS (8 sets, daily range): BP systolic 114–134; BP diastolic 73–90; PULSE 59–80; RESP 17–20; TEMP 97.8–98.5; O2SAT 92–97
[2025-06-19] MEDS: MELATONIN 5 MG TAB PO ONE (02:04)
[2025-06-19 05:09] LABS: Hematocrit 41.7 % (41.0-53.0); Hemoglobin 13.9 g/dL (13.5-17.5); Mean Corpuscular Hemoglobin 29.4 pg (28.0-32.0); Mean Corpuscular Volume 88.1 fL (80.0-100.0); Nucleated Red Blood Cells % 0.0 %
[2025-06-19 05:24] LABS: Alanine Aminotransferase 33 U/L (7-40); Albumin 4.3 g/dL (3.2-4.8); Alkaline Phosphatase 94 U/L (46-116); Anion Gap 12 (5-15); BUN/Creatinine Ratio 18.3 (10.0-20.0); Blood Urea Nitrogen 15 mg/dL (9-23); Calcium 9.8 mg/dL (8.7-10.4); Carbon Dioxide 27 mmol/L (20-31); Chloride 106 mmol/L (98-107); Potassium 3.8 mmol/L (3.5-5.1); Sodium 145 mmol/L (136-145); Total Protein 6.9 g/dL (5.7-8.2)
[2025-06-19 05:25] LABS: Bilirubin, Total 0.6 mg/dL (0.2-1.0)
[2025-06-19 05:30] LABS: Glucose 158 mg/dL (74-106)
[2025-06-19] MEDS: MORPHINE SULF 30 mg ER tab PO ONE (10:41)
[2025-06-19] MEDS ORDERED: AUG875T PO (16:53)
--- NOTE | 2025-06-19 16:56 | DVHDS2 ---
Discharge Summary Date of Admission Jun 18, 2025 at 08:25 Date of Discharge: Jun 19, 2025 Labs/Diagnostic Data: Laboratory Results Test 06/19/25 16:36 06/19/25 04:43 06/18/25 23:00 06/18/25 07:05 POC Glucose 132 mg/dl (70-106) White Blood Count 11.2 10^3/uL (4.4-10.8) Red Blood Count 4.73 10^6/uL (4.5-5.90) Hemoglobin 13.9 g/dL (13.5-17.5) Hematocrit 41.7 % (41.0-53.0) Mean Corpuscular Volume 88.1 fL (80.0-100.0) Mean Corpuscular Hemoglobin 29.4 pg (28.0-32.0) Mean Corpuscular Hemoglobin Concent 33.3 g/dL (32.0-36.0) Red Cell Distribution Width 13.9 % (11.8-14.3) Platelet Count 176 10^3/uL (140-450) Mean Platelet Volume 8.8 fL (6.9-10.8) Neutrophils (%) (Auto) 75.1 % (37.0-80.0) Lymphocytes (%) (Auto) 15.7 % (10.0-50.0) Monocytes (%) (Auto) 7.8 % (0.0-12.0) Eosinophils (%) (Auto) 1.2 % (0.0-7.0) Basophils (%) (Auto) 0.2 % (0.0-2.0) Neutrophils # (Auto) 8.4 10 ^3/uL (1.6-8.6) Lymphocytes # (Auto) 1.8 10 ^3/uL (0.4-5.4) Monocytes # (Auto) 0.9 10 ^3/uL (0-1.3) Eosinophils # (Auto) 0.1 10 ^3/uL (0-0.8) Basophils # (Auto) 0 10 ^3/uL (0-0.2) Nucleated Red Blood Cells 0.0 % Sodium Level 145 mmol/L (136-145) Potassium Level 3.8 mmol/L (3.5-5.1) Chloride Level 106 mmol/L (98-107) Carbon Dioxide Level 27 mmol/L (20-31) Anion Gap 12 (5-15) Blood Urea Nitrogen 15 mg/dL (9-23) Creatinine 0.82 mg/dL (0.700-1.30) Glomerular Filtration Rate Calc 102 mL/min (>90) BUN/Creatinine Ratio 18.3 (10.0-20.0) Serum Glucose 158 mg/dL (74-106) Calcium Level 9.8 mg/dL (8.7-10.4) Total Bilirubin 0.6 mg/dL (0.2-1.0) Aspartate Amino Transferase (AST) 27 U/L (13-40) Alanine Aminotransferase (ALT) 33 U/L (7-40) Alkaline Phosphatase 94 U/L (46-116) Total Protein 6.9 g/dL (5.7-8.2) Albumin 4.3 g/dL (3.2-4.8) Urine Color Light-yellow (Yellow) Urine Clarity Clear (Clear) Urine pH 5.5 (5.0-9.0) Urine Specific [place] 1.017 (1.001-1.035) Urine Protein Negative (Negative) Urine Ketones Negative (Negative) Urine Blood Trace /uL (Negative) Urine Nitrite Negative (Negative) Urine Bilirubin Negative (Negative) Urine Urobilinogen Normal mg/dL (Negative) Urine Leukocyte Esterase Negative /uL (Negative) Urine RBC <1 /hpf (0 - 3) Urine Microscopic WBC 1 /HPF (0-3) Urine Squamous Epithelial Cells Few /hpf (<5) Urine Bacteria None seen /hpf (None Seen) Urine Mucus Few (None Seen) Urine Glucose Normal mg/dL (Normal) Urine Opiates Screen Pos (NEGATIVE) Urine Fentanyl Screen Neg (NEGATIVE) Urine Barbiturates Screen Neg (NEGATIVE) Urine Phencyclidine Screen Neg (NEGATIVE) Urine Amphetamines Screen Neg (NEGATIVE) Urine Benzodiazepines Screen Neg (NEGATIVE) Urine Cocaine Screen Neg (NEGATIVE) Urine Cannabinoids Screen Neg (NEGATIVE) Erythrocyte Sedimentation Rate 16 mm/hr (0-20) Hemoglobin A1c 7.0 % A1C (<5.7) Lactic Acid Level 1.6 mmol/L (0.4-2.0) C-Reactive Protein High Sensitivity 0.52 mg/dL (<1.0) Other Laboratory Tests 06/19/25 04:43 Brief Hx & Hospital Course: 55-year-old male with a known history of diabetes mellitus type 2, hypertension, dyslipidemia, sleep apnea currently on CPAP at night, morbid obesity classII who presented to the hospital with a right facial pain found to have non suppurative right sided parotitis. Patient was given IV antibiotics including Rocephin Biaxin and clindamycin. Patient's swelling has resolved and pain has been resolved. Patient is requesting to go home. Patient will be discharged on p.o. antibiotics. Condition at Discharge: Stable Final Diagnosis/Problems List 1. Right parotitis nonsuppurative 2. Diabetes mellitus type 2 3. Hypertension 4. Dyslipidemia 5. History of sleep apnea currently on CPAP at home Discharge Disposition: Home SNF Discharge Will this Physician continue t: No Discharge Instruct/Medications Diet: Cardiac 2g Na,low cholest Diet comment: 1999 ADA diet Activity: No Restrictions, As Tolerated Follow Up/Referral: Follow up with the PCP in 1-2 weeks Medications: As prescribed and reconciled. New Medications: Amoxicillin & Pot Clavulanate (Augmentin Tablet) 875 Mg Tb 875 MG PO BID for 7 Days, #14 TAB Continued Medications: Ibuprofen Micronized (Motrin Tablet) 600 Mg Tb 600 MG PO TID, #40 TAB *Black box warning-NSAIDS can increase risk of [place] & hypertension, GI irritation, ulceration, bleed, perferation. Do not use post cardiac surgery. Use short duration/lowest effective dose. Metformin Hydrochloride (Metformin Hcl Er) 1,000 Mg Tab 1000 MG PO DAILY, TAB Metoprolol Tartrate (Lopressor Tablet) 50 Mg Tb 1 TAB PO DAILY Morphine Sulfate (Morphine Sulfate) 30 Mg Tab 30 MG PO BID, TAB Semaglutide (Ozempic) 2 Mg/3 Ml Inj 0.5 MG SC QWEEKLY, INJ Simvastatin (Simvastatin) 20 Mg Tab 1 TAB PO Scheduled Amoxicillin & Pot Clavulanate (Augmentin Tablet), 875 MG PO BID Ibuprofen Micronized (Motrin Tablet), 600 MG PO TID, (Reported) Metformin Hydrochloride (Metformin Hcl Er), 1,000 MG PO DAILY, (Reported) Metoprolol Tartrate (Lopressor Tablet), 1 TAB PO DAILY, (Reported) Morphine Sulfate (Morphine Sulfate), 30 MG PO BID, (Reported) Semaglutide (Ozempic), 0.5 MG SC QWEEKLY, (Reported) Miscellaneous Medications Simvastatin (Simvastatin), 1 TAB PO, (Reported) Discharge Statement: "Patient was advised to return to the ER or call 911 if any headaches, dizziness, shortness of breath, chest pain, abdominal pain, bleeding, fevers, or worsening of medical condition. Patient was counseled about treatment plan, medications, possible side effects, patientverbalized understanding. All questions were answered to the best of my ability. This discharge took greater then 30 minutes in planning, reviewing documentation, counseling the patient, and discussing with other team members." ASSESSMENT ASSESSMENT Assessment 1. Right parotitis nonsuppurative 2. Diabetes mellitus type 2 3. Hypertension 4. Dyslipidemia 5. History of sleep apnea currently on CPAP at home Date of Service: Jun 19, 2025 Billing Provider: RAZ ZAMBRANO MD Common Visit Codes: 07849-RGR/OBS DISCH DAY <30MIN, 81106-NUJ/OBS DISCH DAY >30min RAZ ZAMBRANO MD Jun 19, 2025 16:56
[2025-06-19] MEDS ORDERED: MORPHINE SULF 30 mg ER tab PO SCH (22:00)
== END 2025-06-19 18:35 | disposition home or self-care (01) | DRG 156 ==
LOC: ER 05:30 → OVERFLOW 08:25 → WEST WING 22:10
DX: K11.21 Acute sialoadenitis (principal); E11.9 Type 2 diabetes mellitus without complications; I10 Essential (primary) hypertension; E66.01 Morbid (severe) obesity due to excess calories; Z68.38 Body mass index [BMI] 38.0-38.9, adult; E78.5 Hyperlipidemia, unspecified; G89.29 Other chronic pain; M54.50 Low back pain, unspecified; Z91.010 Allergy to peanuts; Z88.7 Allergy status to serum and vaccine; Z83.3 Family history of diabetes mellitus; Z82.49 Family history of ischemic heart disease and other diseases of the circulatory system; Z82.0 Family history of epilepsy and other diseases of the nervous system; Z79.84 Long term (current) use of oral hypoglycemic drugs; Z79.899 Other long term (current) drug therapy
CPT/HCPCS: 36415; 70486; 80048; 80053; 80307; 81001; 82962; 83036; 83605; 85025; 85652; 86141; 87040; G0378; J1815; J1885; J2405; J2543; J3490